=== PATIENT | male | born 1975 | race Caucasian/White ===

== ENCOUNTER 2023-03-30 15:48 | Emergency (ER) | payer OTHER ==
[2023-03-30 16:33] VITALS: BP 145/94; PULSE 82; RESP 18; TEMP 98.9; BMI 33.3
== END 2023-03-30 16:41 | disposition home or self-care (01) ==
LOC: FER 15:48
DX: L03.114 Cellulitis of left upper limb (principal); R22.32 Localized swelling, mass and lump, left upper limb; L53.9 Erythematous condition, unspecified
CPT/HCPCS: 99283-25